=== PATIENT | female | born 1990 ===

== ENCOUNTER 2020-01-24 05:10 | Inpatient (IN) | payer BC ==
[2020-01-24] MEDS ORDERED: Ondansetron 4 MG/2 ML SDV IVPUSH PRN (05:56)
[2020-01-24] MEDS ORDERED: Tranexamic Acid 1,000 MG in Sodium Chloride 0.9% 100 ML IV PRN (05:56)
[2020-01-24] MEDS ORDERED: Nalbuphine 10 MG/1 ML Vial IVPUSH PRN (05:56)
[2020-01-24] MEDS ORDERED: Misoprostol 200 MCG Tab PO PRN (05:56)
[2020-01-24] MEDS ORDERED: Lidocaine 1% 50 ML MDV INJECT PRN (05:56)
[2020-01-24] MEDS ORDERED: Water For Irrigation,Sterile 1,000 ML Container IRR PRN (05:56)
[2020-01-24] MEDS ORDERED: Ampicillin 2 GM in Sodium Chloride 0.9% 100 ML IV ONE (05:56)
[2020-01-24] MEDS ORDERED: Butorphanol 1 MG/ML SDV IVPUSH PRN (05:56)
[2020-01-24] MEDS ORDERED: Carboprost Tromethamine 250 MCG/1 ML Amp IM PRN (05:56)
[2020-01-24] MEDS ORDERED: Sodium Chloride 0.9% 2.5 ML Syringe FLUSH PRN (05:56)
[2020-01-24] MEDS ORDERED: Methylergonovine 0.2 MG/1 ML Amp IM PRN (05:56)
[2020-01-24] MEDS ORDERED: Sodium Chloride 0.9% 10 ML SDV IV PRN (05:56)
[2020-01-24] MEDS ORDERED: Sodium Chloride 0.9% 10 ML Syringe FLUSH PRN (05:56)
[2020-01-24] MEDS ORDERED: Oxytocin/0.9 % Sodium Chloride 30 UNIT/500 ML BAG IV SCH ×2 (06:00→08:15)
[2020-01-24] MEDS: Lactated Ringers 1,000 ML IV SCH ×3 (06:22→16:57)
[2020-01-24] MEDS ORDERED: Terbutaline 1 MG/ML SDV SUBCUT PRN (08:14)
[2020-01-24] MEDS: Ampicillin 1 GM in Sodium Chloride 0.9% 50 ML IV SCH ×3 (10:27→18:10)
[2020-01-24] MEDS ORDERED: fentaNYL 100 MCG/2 ML SDV ONE (16:26)
[2020-01-24] MEDS ORDERED: Ropivacaine HCl/PF 100 ML ONE (16:26)
--- NOTE | 2020-01-24 16:46 | PCM.PREANE ---
Preanesthetic Assessment - Anesthesia/Transfusion/Family Hx Anesthesia History: No Prior Anesthesia Family History of Anesthesia Reaction: No Transfusion History: No Prior Transfusion(s) - Physical Assessment NPO Status Date: 01/24/20 NPO Status Time: 09:00 Height: 1.78 m Weight: 88.904 kg ASA Class: 1 - Lab Values: Laboratory Last Values WBC 9.66 K/uL (4.0-11.0) 01/24/20 06:10 RBC 4.32 M/uL (4.30-5.90) 01/24/20 06:10 Hgb 13.2 g/dL (12.0-16.0) 01/24/20 06:10 Hct 40.3 % (36.0-46.0) 01/24/20 06:10 MCV 93.3 fL (80.0-98.0) 01/24/20 06:10 MCH 30.6 pg (27.0-32.0) 01/24/20 06:10 MCHC 32.8 g/dL (31.0-37.0) 01/24/20 06:10 RDW Std Deviation 44.7 fl (28.0-62.0) 01/24/20 06:10 RDW Coeff of Arya 13 % (11.0-15.0) 01/24/20 06:10 Plt Count 175 K/uL (150-400) 01/24/20 06:10 MPV 12.80 fL (7.40-12.00) H 01/24/20 06:10 Nucleated RBC % 0.0 /100WBC 01/24/20 06:10 Nucleated RBCs # 0 K/uL 01/24/20 06:10 Membrane Rupture POSITIVE 01/24/20 05:25 Blood Type B POSITIVE 01/24/20 06:10 Antibody Screen NEGATIVE 01/24/20 06:10 - Allergies Allergies/Adverse Reactions: Allergies Allergy/AdvReac Type Severity Reaction Status Date / Time No Known Allergies Allergy Verified 01/24/20 05:43 - Acknowledgements Anesthesia Type Planned: Epidural Pt an Appropriate Candidate for the Planned Anesthesia: Yes Alternatives and Risks of Anesthesia Discussed w Pt/Guardian: Yes Pt/Guardian Understands and Agrees with Anesthesia Plan: Yes PreAnesthesia Questionnaire - Past Health History Medical/Surgical History: Denies Medical/Surgical History 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: , Spontaneous - Infectious Disease History Infectious Disease History: Reports: Chicken Pox - SUBSTANCE USE Smoking Status *Q: Former Smoker Tobacco Use Within Last Twelve Months: No Second Hand Smoke Exposure: No Recreational Drug Use History: No - CURRENT (IN HOUSE) MEDS Current Meds: Current Medications Butorphanol Tartrate (Stadol) 1 mg IVPUSH Q1H PRN PRN Reason: Pain Carboprost Tromethamine (Hemabate Ds) 250 mcg IM ASDIRECTED PRN PRN Reason: Post Hemorrhage Tranexamic Acid 1,000 mg/ (Sodium Chloride) 110 mls @ 660 mls/hr IV ONETIME PRN PRN Reason: Bleeding Lactated Ringer's (Ringers, Lactated) 1,000 mls @ 150 mls/hr IV ASDIRECTED JOLANTA Last Admin: 01/24/20 15:54 Dose: 150 mls/hr Oxytocin/Sodium Chloride (Oxytocin 30 Unit/500 Ml-Ns) 30 unit in 500 mls @ 500 mls/hr IV TITRATE JOLANTA Ampicillin Sodium 1 gm/ Sodium (Chloride) 50 mls @ 100 mls/hr IV Q4H [facility] Last Admin: 01/24/20 14:16 Dose: 100 mls/hr Oxytocin/Sodium Chloride (Oxytocin 30 Unit/500 Ml-Ns) 30 unit in 500 mls @ 2 mls/hr IV TITRATE JOLANTA; Protocol Last Titration: 01/24/20 14:54 Dose: 14 munits/min, 14 mls/hr Lidocaine HCl (Xylocaine 1%) 50 ml INJECT ONETIME PRN PRN Reason: Laceration repair Methylergonovine Maleate (Methergine) 0.2 mg IM ASDIRECTED PRN PRN Reason: Post Hemorrhage Misoprostol (Cytotec) 200 mcg PO ONETIME PRN PRN Reason: Post Hemorrhage Nalbuphine HCl (Nubain) 10 mg IVPUSH Q1H PRN PRN Reason: Pain (severe 7-10) Ondansetron HCl (Zofran) 4 mg IVPUSH Q6H PRN PRN Reason: Nausea/Vomiting Sodium Chloride (Saline Flush) 10 ml FLUSH ASDIRECTED PRN PRN Reason: Keep Vein Open Sodium Chloride (Saline Flush) 2.5 ml FLUSH ASDIRECTED PRN PRN Reason: Keep Vein Open Sodium Chloride (Normal Saline) 10 ml IV ASDIRECTED PRN PRN Reason: IV Use Sterile Water (Sterile Water For Irrigation) 1,000 ml IRR ASDIRECTED PRN PRN Reason: delivery Terbutaline Sulfate (Brethine) 0.25 mg SUBCUT ASDIRECTED PRN PRN Reason: Tacysystole Discontinued Medications Fentanyl (Sublimaze) Confirm Administered Dose 100 mcg .ROUTE .STK-MED ONE Stop: 01/24/20 16:27 Ampicillin Sodium 2 gm/ Sodium (Chloride) 100 mls @ 200 mls/hr IV ONETIME ONE Stop: 01/24/20 06:25 Last Admin: 01/24/20 06:25 Dose: 200 mls/hr Ropivacaine (Naropin 0.2%) Confirm Administered Dose 100 mls @ as directed .ROUTE .STK-MED ONE Stop: 01/24/20 16:27
--- NOTE | 2020-01-24 16:49 | PCM.PRNOTE ---
- Free Text/Narrative Note: Anes NOte Patient requests epidural for L&D. Sitting position, Level L3-L4 midline approach. Sterile technique. Chloraprep scrub to lumbar area. Sterile fenestrated drape applied. Epidural space easily achieved single attempt with ease using TRISHA [id number]. TRISHA at 3 cm. Cath threaded 5 cm with ease. Cath secured at 9 cm at skin using sterile clear adhesive dressing. 1633 Test 3 cc 1.5% lido with epi negative. 1636 Load 10 cc 0.2% ropivicaine with 1 mcg cc fentanyl in slow divided doses. 1640 Pump started wtih 90 cc same solution. Rate is 8 cc hr with 6 cc q 20 min prn bolus. Shaan well. Time with patient [id number] Michele Cary CRNA
[2020-01-24] MEDS ORDERED: Lanolin 100% Cream 7 GM Tube TOP PRN (21:03)
[2020-01-24] MEDS ORDERED: Witch Hazel Medicated Pads 40/Jar TOP PRN (21:03)
[2020-01-24] MEDS ORDERED: Bisacodyl 10 MG Supp RECTAL PRN (21:03)
[2020-01-24] MEDS ORDERED: Ibuprofen 400 MG Tab PO PRN (21:03)
[2020-01-24] MEDS ORDERED: Benzocaine/Menthol 20%-0.5% Spray 78 GM Cannister TOP PRN (21:03)
[2020-01-24] MEDS ORDERED: Docusate Sodium 100 MG Cap PO PRN (21:03)
[2020-01-24] MEDS ORDERED: oxyCODONE 5 MG Tab PO PRN (21:03)
[2020-01-24] MEDS ORDERED: Acetaminophen 500 MG Tab PO PRN (21:03)
--- NOTE | 2020-01-24 21:55 | OR ---
SURGEON: Jason Barahona MD DATE OF PROCEDURE: 01/24/2020 INDICATION FOR PROCEDURE: A 29-year-old G2, P0-0-1-0, at 40 weeks 0 days, presenting in with premature rupture of membranes. She was GBS positive and received penicillin for GBS prophylaxis. She had an otherwise uncomplicated . Cat 1 tracing. She received Pitocin for augmentation and an epidural for anesthesia. She progressed to fully dilated and began pushing with contractions. PREOPERATIVE DIAGNOSIS: Jensen intrauterine at 40 weeks 0 days. POSTOPERATIVE DIAGNOSIS: Jensen intrauterine at 40 weeks 0 days. PROCEDURES PERFORMED: 1. Normal spontaneous vaginal delivery. 2. Repair of second-degree perineal laceration. ESTIMATED BLOOD LOSS: 300 mL. ANESTHESIA: Epidural. FINDINGS: Viable male infant. Weight of 8lbs and 7oz. scores 8 and 9. DESCRIPTION OF PROCEDURE: The patient pushed with contractions for approximately 45 minutes. heart rate had intermittent early and variable decelerations. The baby delivered in occiput anterior position, restituted ROT. Tight nuchal cord was noted x1. Anterior shoulder delivered easily with compound presentation of the right arm, the posterior shoulder and body delivered without difficulty. The nuchal cord was reduced after delivery. The baby was placed on maternal chest and evaluated by awaiting nursery staff. Baby was pink, crying, and moving all extremities immediately after delivery. The umbilical cord was clamped and cut after 60 seconds and no longer pulsating. The umbilical cord gases were obtained. The placenta was removed with gentle traction on the umbilical cord. There was noted to be a small amount of trailing membranes after the placental delivery which was manually removed. The uterus was firm after bimanual massage, and the bleeding was light. The perineum was examined, and second-degree laceration was noted. It was repaired with 3-0 Vicryl in the usual fashion. There were superficial lacerations along bilateral labia and periurethral area, but it was hemostatic, so was not repaired. The patient was cleaned. She tolerated the procedure well and was given care instructions. CLEMENTINE DAVALOS /[id number] JACK[place]
[2020-01-25] MEDS: Ibuprofen 800 MG Tab PO PRN ×3 (01:23→20:25)
--- NOTE | 2020-01-25 07:08 | PCM48HPAN ---
Post Anesthesia Note - EVALUATION WITHIN 48HRS OF ANESTHETIC Vital Signs in Normal Range: Yes Patient Participated in Evaluation: Yes Respiratory Function Stable: Yes Airway Patent: Yes Cardiovascular Function Stable: Yes Hydration Status Stable: Yes Pain Control Satisfactory: Yes Nausea and Vomiting Control Satisfactory: Yes Mental Status Recovered: Yes Vital Signs: Last Vital Signs Temp 36.5 C 01/25/20 04:49 Pulse 65 01/25/20 04:49 Resp 16 01/25/20 04:49 BP 109/60 01/25/20 04:49 Pulse Ox 95 01/25/20 04:49
[2020-01-25] MEDS: Ampicillin 1 GM in Sodium Chloride 0.9% 50 ML IV SCH ×2 (10:22→10:23)
--- NOTE | 2020-01-25 12:17 | PCM.PNPP ---
- General Info Date of Service: 01/25/20 Subjective Update: 19yo P1 s/p PPD1 , ambulating , tolerating regular diet Functional Status: Reports: Pain Controlled, Tolerating Diet, Ambulating, Urinating - Review of Systems General: Reports: No Symptoms HEENT: Reports: No Symptoms Pulmonary: Reports: No Symptoms Cardiovascular: Reports: No Symptoms Gastrointestinal: Reports: No Symptoms Genitourinary: Reports: No Symptoms Musculoskeletal: Reports: No Symptoms Skin: Reports: No Symptoms Neurological: Reports: No Symptoms Psychiatric: Reports: No Symptoms - General Info Date of Service: 01/25/20 - Patient Data Vital Signs - Most Recent: Last Vital Signs Temp 36.1 C 01/25/20 07:30 Pulse 66 01/25/20 07:30 Resp 18 01/25/20 07:30 BP 107/69 01/25/20 07:30 Pulse Ox 95 01/25/20 07:30 Weight - Most Recent: 88.904 kg Lab Results - Last 24 Hours: Laboratory Results - last 24 hr 01/25/20 Range/Units 05:35 Hgb 11.5 L (12.0-16.0) g/dL Hct 34.7 L (36.0-46.0) % Med Orders - Current: Current Medications Acetaminophen (Tylenol Extra Strength) 500 mg PO Q4H PRN PRN Reason: Pain Acetaminophen (Tylenol Extra Strength) 1,000 mg PO Q4H PRN PRN Reason: Pain Benzocaine/Menthol (Dermoplast Pain Relief 20%-0.5% [place]) 78 gm TOP ASDIRECTED PRN PRN Reason: Perineal Comfort Measure Bisacodyl (Dulcolax) 10 mg RECTAL ONETIME PRN PRN Reason: Constipation Butorphanol Tartrate (Stadol) 1 mg IVPUSH Q1H PRN PRN Reason: Pain Carboprost Tromethamine (Hemabate Ds) 250 mcg IM ASDIRECTED PRN PRN Reason: Post Hemorrhage Docusate Sodium (Colace) 100 mg PO BID PRN PRN Reason: Constipation Emollient Ointment (Lansinoh Hpa) 0 gm TOP ASDIRECTED PRN PRN Reason: Sore Nipples Tranexamic Acid 1,000 mg/ (Sodium Chloride) 110 mls @ 660 mls/hr IV ONETIME PRN PRN Reason: Bleeding Lactated Ringer's (Ringers, Lactated) 1,000 mls @ 150 mls/hr IV ASDIRECTED JOLANTA Last Admin: 01/24/20 16:57 Dose: 150 mls/hr Oxytocin/Sodium Chloride (Oxytocin 30 Unit/500 Ml-Ns) 30 unit in 500 mls @ 500 mls/hr IV TITRATE JOLANTA Oxytocin/Sodium Chloride (Oxytocin 30 Unit/500 Ml-Ns) 30 unit in 500 mls @ 2 mls/hr IV TITRATE JOLANTA; Protocol Last Titration: 01/24/20 14:54 Dose: 14 munits/min, 14 mls/hr Ibuprofen (Motrin) 400 mg PO Q4H PRN PRN Reason: Pain Ibuprofen (Motrin) 800 mg PO Q6H PRN PRN Reason: Pain Last Admin: 01/25/20 08:03 Dose: 800 mg Lidocaine HCl (Xylocaine 1%) 50 ml INJECT ONETIME PRN PRN Reason: Laceration repair Methylergonovine Maleate (Methergine) 0.2 mg IM ASDIRECTED PRN PRN Reason: Post Hemorrhage Misoprostol (Cytotec) 200 mcg PO ONETIME PRN PRN Reason: Post Hemorrhage Nalbuphine HCl (Nubain) 10 mg IVPUSH Q1H PRN PRN Reason: Pain (severe 7-10) Ondansetron HCl (Zofran) 4 mg IVPUSH Q6H PRN PRN Reason: Nausea/Vomiting Oxycodone HCl (Oxycodone) 5 mg PO Q2H PRN PRN Reason: Pain Sodium Chloride (Saline Flush) 10 ml FLUSH ASDIRECTED PRN PRN Reason: Keep Vein Open Sodium Chloride (Saline Flush) 2.5 ml FLUSH ASDIRECTED PRN PRN Reason: Keep Vein Open Sodium Chloride (Normal Saline) 10 ml IV ASDIRECTED PRN PRN Reason: IV Use Sterile Water (Sterile Water For Irrigation) 1,000 ml IRR ASDIRECTED PRN PRN Reason: delivery Terbutaline Sulfate (Brethine) 0.25 mg SUBCUT ASDIRECTED PRN PRN Reason: Tacysystole Witch Kassandra (Tucks) 1 pad TOP ASDIRECTED PRN PRN Reason: comfort care Discontinued Medications Fentanyl (Sublimaze) Confirm Administered Dose 100 mcg .ROUTE .STK-MED ONE Stop: 01/24/20 16:27 Last Admin: 01/25/20 10:22 Dose: Not Given Ampicillin Sodium 2 gm/ Sodium (Chloride) 100 mls @ 200 mls/hr IV ONETIME ONE Stop: 01/24/20 06:25 Last Admin: 01/24/20 06:25 Dose: 200 mls/hr Ampicillin Sodium 1 gm/ Sodium (Chloride) 50 mls @ 100 mls/hr IV Q4H JOLANTA Last Admin: 01/25/20 10:23 Dose: Not Given Ropivacaine (Naropin 0.2%) Confirm Administered Dose 100 mls @ as directed .ROUTE .STK-MED ONE Stop: 01/24/20 16:27 Last Admin: 01/25/20 10:22 Dose: Not Given - Infant Interaction Infant Disposition, : in Room with Family Feeding: Breastfed Infant; Nursed Well Support Person: Significant Other - Recovery Exam Fundal Tone: Firm Fundal Level: 1 Fingerbreadths Below Umbilicus Fundal Placement: Midline Lochia Amount: Scant Lochia Color: Rubra/Red Perineum Description: Other (see below) Other Perinuem Description: 2nd degree Bladder Status: Voiding Urinary Elimination: Voided - Exam General: Alert HEENT: Pupils Equal Lungs: Clear to Auscultation Cardiovascular: Regular Rate, Regular Rhythm GI/Abdominal Exam: Normal Bowel Sounds Extremities: Normal Inspection Wound/Incisions: Healing Well Neurological: No New Focal Deficit Psy/Mental Status: Alert - Problem List & Annotations (1) Vaginal delivery SNOMED Code(s): 362252845 Code(s): O80 - ENCOUNTER FOR FULL-TERM UNCOMPLICATED DELIVERY Status: Acute Current Visit: Yes - Problem List Review Problem List Initiated/Reviewed/Updated: Yes - Assessment Assessment:: 29 yo P1 s/p PPD 1 Normal lochia - Plan Plan:: Discharge home Pain control as needed Bleeding and fever precautions given Continue vitamins
[2020-01-25] MEDS: Acetaminophen 500 MG Tab PO PRN ×2 (13:50→22:13)
[2020-01-26] MEDS: Ibuprofen 800 MG Tab PO PRN (04:35)
[2020-01-26] MEDS: Acetaminophen 500 MG Tab PO PRN (04:35)
--- NOTE | 2020-01-26 11:45 | PCM.PNPP ---
- General Info Date of Service: 01/26/20 Subjective Update: 19yo P1 s/p PPD2 , ambulating , tolerating regular diet Functional Status: Reports: Pain Controlled, Tolerating Diet, Ambulating, Urinating - Review of Systems General: Reports: No Symptoms HEENT: Reports: No Symptoms Pulmonary: Reports: No Symptoms Cardiovascular: Reports: No Symptoms Gastrointestinal: Reports: No Symptoms Genitourinary: Reports: No Symptoms Musculoskeletal: Reports: No Symptoms Skin: Reports: No Symptoms Neurological: Reports: No Symptoms Psychiatric: Reports: No Symptoms - General Info Date of Service: 01/26/20 - Patient Data Vital Signs - Most Recent: Last Vital Signs Temp 36.3 C 01/26/20 04:00 Pulse 60 01/26/20 04:00 Resp 16 01/26/20 04:00 BP 116/78 01/26/20 04:00 Pulse Ox 97 01/26/20 04:00 Weight - Most Recent: 88.904 kg Med Orders - Current: Current Medications Acetaminophen (Tylenol Extra Strength) 500 mg PO Q4H PRN PRN Reason: Pain Acetaminophen (Tylenol Extra Strength) 1,000 mg PO Q4H PRN PRN Reason: Pain Last Admin: 01/26/20 04:35 Dose: 1,000 mg Benzocaine/Menthol (Dermoplast Pain Relief 20%-0.5% Melvin) 78 gm TOP ASDIRECTED PRN PRN Reason: Perineal Comfort Measure Bisacodyl (Dulcolax) 10 mg RECTAL ONETIME PRN PRN Reason: Constipation Butorphanol Tartrate (Stadol) 1 mg IVPUSH Q1H PRN PRN Reason: Pain Carboprost Tromethamine (Hemabate Ds) 250 mcg IM ASDIRECTED PRN PRN Reason: Post Hemorrhage Docusate Sodium (Colace) 100 mg PO BID PRN PRN Reason: Constipation Last Admin: 01/25/20 20:25 Dose: 100 mg Emollient Ointment (Lansinoh Hpa) 0 gm TOP ASDIRECTED PRN PRN Reason: Sore Nipples Tranexamic Acid 1,000 mg/ (Sodium Chloride) 110 mls @ 660 mls/hr IV ONETIME PRN PRN Reason: Bleeding Lactated Ringer's (Ringers, Lactated) 1,000 mls @ 150 mls/hr IV ASDIRECTED JOLANTA Last Admin: 01/24/20 16:57 Dose: 150 mls/hr Oxytocin/Sodium Chloride (Oxytocin 30 Unit/500 Ml-Ns) 30 unit in 500 mls @ 500 mls/hr IV TITRATE JOLANTA Oxytocin/Sodium Chloride (Oxytocin 30 Unit/500 Ml-Ns) 30 unit in 500 mls @ 2 mls/hr IV TITRATE JOLANTA; Protocol Last Titration: 01/24/20 14:54 Dose: 14 munits/min, 14 mls/hr Ibuprofen (Motrin) 400 mg PO Q4H PRN PRN Reason: Pain Ibuprofen (Motrin) 800 mg PO Q6H PRN PRN Reason: Pain Last Admin: 01/26/20 04:35 Dose: 800 mg Lidocaine HCl (Xylocaine 1%) 50 ml INJECT ONETIME PRN PRN Reason: Laceration repair Methylergonovine Maleate (Methergine) 0.2 mg IM ASDIRECTED PRN PRN Reason: Post Hemorrhage Misoprostol (Cytotec) 200 mcg PO ONETIME PRN PRN Reason: Post Hemorrhage Nalbuphine HCl (Nubain) 10 mg IVPUSH Q1H PRN PRN Reason: Pain (severe 7-10) Ondansetron HCl (Zofran) 4 mg IVPUSH Q6H PRN PRN Reason: Nausea/Vomiting Oxycodone HCl (Oxycodone) 5 mg PO Q2H PRN PRN Reason: Pain Sodium Chloride (Saline Flush) 10 ml FLUSH ASDIRECTED PRN PRN Reason: Keep Vein Open Sodium Chloride (Saline Flush) 2.5 ml FLUSH ASDIRECTED PRN PRN Reason: Keep Vein Open Sodium Chloride (Normal Saline) 10 ml IV ASDIRECTED PRN PRN Reason: IV Use Sterile Water (Sterile Water For Irrigation) 1,000 ml IRR ASDIRECTED PRN PRN Reason: delivery Terbutaline Sulfate (Brethine) 0.25 mg SUBCUT ASDIRECTED PRN PRN Reason: Tacysystole Witch Kassandra (Tucks) 1 pad TOP ASDIRECTED PRN PRN Reason: comfort care Discontinued Medications Fentanyl (Sublimaze) Confirm Administered Dose 100 mcg .ROUTE .[facility]-MED ONE Stop: 01/24/20 16:27 Last Admin: 01/25/20 10:22 Dose: Not Given Ampicillin Sodium 2 gm/ Sodium (Chloride) 100 mls @ 200 mls/hr IV ONETIME ONE Stop: 01/24/20 06:25 Last Admin: 01/24/20 06:25 Dose: 200 mls/hr Ampicillin Sodium 1 gm/ Sodium (Chloride) 50 mls @ 100 mls/hr IV Q4H JOLANTA Last Admin: 01/25/20 10:23 Dose: Not Given Ropivacaine (Naropin 0.2%) Confirm Administered Dose 100 mls @ as directed .ROUTE .STK-MED ONE Stop: 01/24/20 16:27 Last Admin: 01/25/20 10:22 Dose: Not Given - Interaction Disposition, : in Room with Family Infant Feeding: Breastfed Infant; Nursed Well Support Person: Significant Other - Recovery Exam Fundal Tone: Firm Fundal Level: 1 Fingerbreadths Below Umbilicus Fundal Placement: Midline Lochia Amount: Scant Lochia Color: Rubra/Red Perineum Description: Other (see below) Other Perinuem Description: 2nd degree Bladder Status: Voiding Urinary Elimination: Voided - Exam General: Alert HEENT: Pupils Equal Neck: Supple Lungs: Clear to Auscultation, Normal Respiratory Effort Cardiovascular: Regular Rate, Regular Rhythm GI/Abdominal Exam: Normal Bowel Sounds Extremities: Normal Inspection Neurological: No New Focal Deficit Psy/Mental Status: Alert - Problem List & Annotations (1) Vaginal delivery SNOMED Code(s): 704033005 Code(s): O80 - ENCOUNTER FOR FULL-TERM UNCOMPLICATED DELIVERY Status: Acute Current Visit: Yes - Problem List Review Problem List Initiated/Reviewed/Updated: Yes - My Orders Last 24 Hours: My Active Orders 01/25/20 12:32 Ready for Discharge [RC] PER UNIT ROUTINE - Assessment Assessment:: 29 yo P1 s/p PPD 2 Normal lochia - Plan Plan:: Discharge home Pain control as needed Bleeding and fever precautions given Continue vitamins
== END 2020-01-26 12:30 | disposition home or self-care (01) | DRG 560 ==
LOC: MW.OBCHECK 05:10 → MW.OB 05:10 → MW.OBCHECK 05:56 → OBSVTOIN 21:03 → MW.OB 01-25 00:23
PROVIDERS: ADMIT Obstetrics & Gynecology; ATTEND Obstetrics & Gynecology
PROC: 10E0XZZ Delivery of Products of Conception, External Approach (ICD-10-PCS; principal; 2020-01-24)
PROC: 3E0R3BZ Introduction of Anesthetic Agent into Spinal Canal, Percutaneous Approach (ICD-10-PCS; 2020-01-24)
PROC: 0KQM0ZZ Repair Perineum Muscle, Open Approach (ICD-10-PCS; 2020-01-24)
PROC: 00HU33Z Insertion of Infusion Device into Spinal Canal, Percutaneous Approach (ICD-10-PCS; 2020-01-24)
DX: O48.0 Post-term pregnancy (principal); Z3A.40 40 weeks gestation of pregnancy; Z37.0 Single live birth; O99.824 Streptococcus B carrier state complicating childbirth; O76 Abnormality in fetal heart rate and rhythm complicating labor and delivery; Z87.891 Personal history of nicotine dependence; O70.1 Second degree perineal laceration during delivery
CPT/HCPCS: 36415; 51702; 59025; 59409; 84112; 85014; 85018; 85027; 86592; 86593; 86850; 86900; 86901; A9270-GY; J0290; J2590; J2795; J3010; J7050; J7120

== ENCOUNTER 2023-03-13 21:35 | Inpatient (IN) | payer BC ==
[2023-03-13] MEDS: Lactated Ringers 1,000 ML IV SCH (22:30)
[2023-03-13] MEDS ORDERED: Methylergonovine 0.2 MG/1 ML Amp IM PRN (22:37)
[2023-03-13] MEDS ORDERED: Butorphanol 1 MG/ML SDV IVPUSH PRN (22:37)
[2023-03-13] MEDS ORDERED: Sodium Chloride 0.9% 2.5 ML Syringe FLUSH PRN (22:37)
[2023-03-13] MEDS ORDERED: Sodium Chloride 0.9% 20 ML SDV IV PRN (22:37)
[2023-03-13] MEDS ORDERED: Tranexamic Acid 1,000 MG in Sodium Chloride 0.9% 100 ML IV PRN (22:37)
[2023-03-13] MEDS ORDERED: Misoprostol 200 MCG Tab PO PRN (22:37)
[2023-03-13] MEDS ORDERED: Carboprost Tromethamine 250 MCG/1 mL Vial IM PRN (22:37)
[2023-03-13] MEDS ORDERED: Water For Irrigation,Sterile 1,000 ML Container IRR PRN (22:37)
[2023-03-13] MEDS ORDERED: Sodium Chloride 0.9% 10 ML Syringe FLUSH PRN (22:37)
[2023-03-13] MEDS ORDERED: Lidocaine 1% 50 ML MDV INJECT PRN (22:37)
[2023-03-13] MEDS ORDERED: Oxytocin/0.9 % Sodium Chloride 30 UNIT/500 ML BAG IV SCH (22:45)
[2023-03-13 23:02] LABS: HEMATOCRIT 37.5 % (36.0-46.0); HEMOGLOBIN 12.5 g/dL (12.0-16.0); MEAN CORPUSCULAR HEMOGLOBIN 30.3 pg (27.0-32.0); MEAN CORPUSCULAR HGB CONC 33.3 g/dL (31.0-37.0); MEAN CORPUSCULAR VOLUME 90.8 fL (80.0-98.0); MEAN PLATELET VOLUME 13.2 fL (7.40-12.00); RED BLOOD CELL COUNT 4.13 M/uL (4.30-5.90); WHITE BLOOD CELL COUNT,WBC 10.18 K/uL (4.0-11.0)
[2023-03-13] MEDS ORDERED: Ropivacaine/PF 400 MG/200 ML PCA ONE (23:19)
[2023-03-13] MEDS ORDERED: Phenylephrine HCl 0.5 MG/5 ML AMP ONE (23:19)
[2023-03-13] MEDS ORDERED: ePHEDrine 50 MG/ML SDV IVPUSH PRN ×2 (23:29)
[2023-03-13] MEDS ORDERED: Phenylephrine HCl 0.5 MG/5 ML AMP IVPUSH PRN (23:29)
[2023-03-13] MEDS ORDERED: Ropivacaine HCl/PF 400 MG in Premix Bag 1 BAG EPIDUR SCH (23:30)
[2023-03-14] MEDS: Lactated Ringers 1,000 ML IV SCH (01:21)
[2023-03-14] MEDS ORDERED: Ondansetron 4 MG/2 ML SDV ONE (01:31)
[2023-03-14] MEDS ORDERED: oxyCODONE 5 MG Tab PO PRN (02:13)
[2023-03-14] MEDS ORDERED: Ibuprofen 800 MG Tab PO PRN (02:13)
[2023-03-14] MEDS ORDERED: Ibuprofen 400 MG Tab PO PRN (02:13)
[2023-03-14] MEDS ORDERED: Lanolin 100% Cream 7 GM Tube TOP PRN (02:13)
[2023-03-14] MEDS ORDERED: Bisacodyl 10 MG Supp RECTAL PRN (02:13)
[2023-03-14] MEDS ORDERED: Docusate Sodium 100 MG Cap PO PRN (02:13)
[2023-03-14] MEDS ORDERED: Acetaminophen 500 MG Tab PO PRN ×2 (02:13)
[2023-03-14] MEDS ORDERED: Witch Hazel Medicated Pads 40/Jar TOP PRN (02:13)
[2023-03-14] MEDS ORDERED: Benzocaine/Menthol 20%-0.5% Spray 78 GM Cannister TOP PRN (02:13)
[2023-03-14 02:19] LABS: PH,UMBILICAL ARTERIAL 7.263 (7.18-7.38); PH,UMBILICAL VENOUS 7.303 (7.25-7.45)
[2023-03-15 05:51] LABS: HEMATOCRIT 33.9 % (36.0-46.0)
== END 2023-03-15 12:30 | disposition home or self-care (01) | DRG 560 ==
LOC: MW.OBCHECK 21:35 → MW.OB 21:35 → MW.OBCHECK 22:00 → MW.OB 22:01 → OBSVTOIN 03-14 01:42 → MW.OB 03-14 05:00
PROVIDERS: ADMIT Obstetrics & Gynecology; ATTEND Obstetrics & Gynecology
PROC: 10E0XZZ Delivery of Products of Conception, External Approach (ICD-10-PCS; principal; 2023-03-14)
PROC: 10907ZC Drainage of Amniotic Fluid, Therapeutic from Products of Conception, Via Natural or Artificial Opening (ICD-10-PCS; 2023-03-14)
PROC: 0KQM0ZZ Repair Perineum Muscle, Open Approach (ICD-10-PCS; 2023-03-14)
PROC: 3E033VJ Introduction of Other Hormone into Peripheral Vein, Percutaneous Approach (ICD-10-PCS; 2023-03-14)
PROC: 3E0R3BZ Introduction of Anesthetic Agent into Spinal Canal, Percutaneous Approach (ICD-10-PCS; 2023-03-14)
DX: O48.0 Post-term pregnancy (principal); O77.0 Labor and delivery complicated by meconium in amniotic fluid; O70.1 Second degree perineal laceration during delivery; Z3A.40 40 weeks gestation of pregnancy; Z37.0 Single live birth; Z87.410 Personal history of cervical dysplasia; Z79.899 Other long term (current) drug therapy
CPT/HCPCS: 36415; 59025; 59409; 82803; 85014; 85018; 85027; 86592; 86850; 86900; 86901; A9270-GY; J2370; J2405; J2590; J2795; J7120